=== PATIENT | female | born 1930 | race African-American/Black ===

== ENCOUNTER 2017-01-04 06:25 | Day surgery (SDC) | payer MEDICARE, MEDICAID ==
[~2017-01-04] VITALS: Ht 157.5 cm; Wt 61.0 kg
[~2017-01-04 06:25] MED LIST: ALLO100T PO; ASPI-1159 PO; CHOL200035 PO; DILT180C69 PO; DOCU-138 PO; ERGO2000 PO; FERR-63 PO; GLIM4TAB2 PO; HYDR100T26 PO; INSU100I22 SQ; LEVO125T PO; LOTE5DRO5 LEFTEYE; METO50TA5 PO; MINO2.5T19 PO; P20 PO; ROSU5TAB PO; TRESIVA SUBCUT
[2017-01-04] MEDS ORDERED: ASPI-1159 PO (07:37)
[2017-01-04] MEDS ORDERED: NOVOLOG FLEX (07:37)
[2017-01-04] MEDS ORDERED: TOPXL5 PO (07:37)
[2017-01-04 07:44] LABS: HEMATOCRIT 31.2 % (36.0-48.0); HEMOGLOBIN 10.1 g/dL (12.0-16.0); MEAN CORPUSCULAR HEMOGLOBIN 28.3 pg (28.0-32.0); MEAN CORPUSCULAR VOLUME 87.5 fL (81.0-99.0); PLATELET 154 x1000/uL (130-400); RED BLOOD CELL COUNT 3.57 mill/uL (4.2-5.4); RED CELL DISTRIBUTION WIDTH 14.4 % (11.6-14.6)
[2017-01-04 07:55] LABS: INR 1.2; PARTIAL THROMBOPLASTIN TIME 27.4 sec (24.0-34.0)
[2017-01-04] MEDS ORDERED: LIDOCAINE HCL 1% 20ML VIAL (Pyxis) INJ ONE (07:58)
[2017-01-04] MEDS ORDERED: IOVERSOL 240MG/ML 100ML BOTTLE IV ONE (07:58)
[2017-01-04] MEDS ORDERED: IOHEXOL-300 100 ML BOTTLE ONE (07:58)
[2017-01-04] MEDS ORDERED: MIDAZOLAM HCL 2 MG/2 ML VIAL ONE ×2 (08:31→08:57)
[2017-01-04] MEDS ORDERED: FENTANYL CITRATE/PF 50MCG/ML 2ML VIAL ONE (08:32)
[2017-01-04] MEDS ORDERED: HEPARIN SODIUM 1,000 UNIT/1ML VIAL IV ONE (11:27)
[2017-01-04] MEDS ORDERED: NICARDIPINE 100MCG/ML 10ML VIAL (CATH LAB) IV ONE (12:47)
[2017-01-04] MEDS ORDERED: NITROGLYCERIN 50MCG/ML 10ML VIAL (CATH LAB) IV ONE (12:47)
== END 2017-01-04 13:05 | disposition home or self-care (01) ==
LOC: CCL 06:25
PROVIDERS: ATTEND Specialist
DX: I25.118 Atherosclerotic heart disease of native coronary artery with other forms of angina pectoris (principal); I13.11 Hypertensive heart and chronic kidney disease without heart failure, with stage 5 chronic kidney disease, or end stage renal disease; N18.6 End stage renal disease; Z99.2 Dependence on renal dialysis; E78.5 Hyperlipidemia, unspecified; E03.9 Hypothyroidism, unspecified; E11.22 Type 2 diabetes mellitus with diabetic chronic kidney disease; D63.8 Anemia in other chronic diseases classified elsewhere; I73.9 Peripheral vascular disease, unspecified; I48.91 Unspecified atrial fibrillation; Z95.5 Presence of coronary angioplasty implant and graft; Z98.890 Other specified postprocedural states; Z88.8 Allergy status to other drugs, medicaments and biological substances; I25.2 Old myocardial infarction
CPT/HCPCS: 36415; 80048; 85027; 85610; 85730; 93458; 99152; 99153; C1769; C1887; C1893; J1644; J2250; J3010; J3490; Q9967

== ENCOUNTER → 2017-04-19 | Day surgery (SDC) | payer MEDICARE, MEDICAID ==
[~2017-04-19] MED LIST changes: +CHOL200010 PO; -CHOL200035 PO; +LIDOCAINE HCL 1% 20ML VIAL (Pyxis) INJ ONE; -LOTE5DRO5 LEFTEYE; +LTMX5 LEFTEYE; +NOVOLOG FLEX; +SODIUM BICARBONATE 4% (2.4MEQ) 5ML VIAL IV ONE; +TOPXL5 PO
== END | disposition home or self-care (01) ==
LOC: RAD 08:44
PROVIDERS: ATTEND Internal Medicine Nephrology
DX: N18.6 End stage renal disease (principal); Z99.2 Dependence on renal dialysis
CPT/HCPCS: 36589; J3490

== ENCOUNTER 2017-10-28 12:38 | Inpatient (IN) | payer MEDICARE, MEDICAID ==
[~2017-10-28] VITALS: Ht 160 cm; Wt 60.4 kg
[~2017-10-28 12:38] MED LIST changes: +CEFU500T41 PO; -LIDOCAINE HCL 1% 20ML VIAL (Pyxis) INJ ONE; +METO-539 PO; -METO50TA5 PO; -SODIUM BICARBONATE 4% (2.4MEQ) 5ML VIAL IV ONE
[2017-10-28] MEDS ORDERED: ASPIRIN 81MG TABLET PO STA (13:05)
[2017-10-28 13:27] LABS: HEMATOCRIT. 34.6 % (36.0-48.0); HEMOGLOBIN. 11.6 g/dL (12.0-16.0); MEAN CORPUSCULAR HEMOGLOBIN 29.1 pg (28.0-32.0); MEAN CORPUSCULAR VOLUME 86.8 fL (81.0-99.0); MEAN PLATELET VOLUME 9.7 fl (7.4-10.4); PLATELET 220 x1000/uL (130-400); RED BLOOD CELL COUNT 3.98 mill/uL (4.2-5.4); RED CELL DISTRIBUTION WIDTH 16.3 % (11.6-14.6)
[2017-10-28 13:33] LABS: CHLORIDE 95 mEq/L (98-107)
[2017-10-28 13:36] LABS: INR 1.1; PARTIAL THROMBOPLASTIN TIME 30.1 sec (23.4-31.0)
[2017-10-28 13:39] LABS: PLATELET ESTIMATE NORMAL
[2017-10-28] MEDS ORDERED: ONDANSETRON HCL 4MG/2ML VIAL IV PRN (16:00)
[2017-10-28] MEDS ORDERED: DIPHENHYDRAMINE 50MG/ML VIAL IV PRN (16:00)
[2017-10-28] MEDS ORDERED: CLONIDINE 0.1MG TABLET PO PRN (16:00)
[2017-10-28] MEDS ORDERED: DOCUSATE SODIUM 100MG CAPSULE PO PRN (16:00)
[2017-10-28] MEDS ORDERED: DEXTROSE 50% WATER 50ML SYRINGE IV PRN (23:15)
[2017-10-29] VITALS (7 sets, daily range): BP systolic 106–170; BP diastolic 61–70
[2017-10-29 06:23] LABS: BASOPHILS % 0.5 % (0.0-2.0); EOSINOPHILS % 1.1 % (0.0-5.0); HEMATOCRIT. 31.8 % (36.0-48.0); HEMOGLOBIN. 10.2 g/dL (12.0-16.0); LYMPHOCYTES % 15.1 % (20.0-50.0); MEAN CORPUSCULAR HEMOGLOBIN 28.3 pg (28.0-32.0); MEAN CORPUSCULAR VOLUME 88.1 fL (81.0-99.0); MEAN PLATELET VOLUME 10.2 fl (7.4-10.4); MONOCYTES % 12.4 % (2.0-8.0); NEUTROPHILS % 70.9 % (40.0-76.0); PLATELET 198 x1000/uL (130-400); RED BLOOD CELL COUNT 3.61 mill/uL (4.2-5.4); RED CELL DISTRIBUTION WIDTH 16.8 % (11.6-14.6)
[2017-10-29] MEDS: BLOOD SUGAR DIAGNOSTIC STRIP TEST SCH ×4 (06:43→21:51)
[2017-10-29] MEDS: ACETAMINOPHEN 325MG TABLET PO PRN ×2 (07:55→21:57)
[2017-10-29] MEDS: INSULIN LISPRO 100 UNITS/ML SUBCUT SCH ×4 (08:10→21:57)
[2017-10-29] MEDS ORDERED: MINOXIDIL 2.5MG TABLET PO SCH (09:30)
[2017-10-29] MEDS: FERROUS SULFATE 325MG TABLET PO SCH ×2 (09:30→20:28)
[2017-10-29] MEDS ORDERED: FLUCONAZOLE 200MG TABLET PO NR (09:30)
[2017-10-29] MEDS: GLIMEPIRIDE 4MG TABLET PO SCH ×3 (09:30→21:57)
[2017-10-29] MEDS: ENOXAPARIN 30MG/0.3ML SYR SUBCUT SCH (10:06)
[2017-10-29] MEDS: DILTIAZEM HCL 180MG CAPSULE CD 24HR PO SCH ×2 (10:17→21:51)
[2017-10-29] MEDS: PREDNISONE 20MG TABLET PO SCH (13:10)
[2017-10-29] MEDS: GABAPENTIN 100MG CAPSULE PO SCH ×2 (14:00→21:51)
[2017-10-29] MEDS: HYDRALAZINE HCL 100MG TABLET PO SCH ×2 (14:09→21:49)
[2017-10-29] MEDS: DOCUSATE SODIUM 100MG CAPSULE PO SCH (17:00)
[2017-10-29] MEDS: ASPIRIN 81MG EC TABLET PO SCH (18:12)
[2017-10-29] MEDS: ALLOPURINOL 100 MG TABLET PO SCH (21:49)
[2017-10-29] MEDS: CEFUROXIME AXETIL 250MG TABLET PO SCH (21:50)
[2017-10-29] MEDS: ATORVASTATIN CALCIUM 10MG TABLET PO SCH (21:51)
[2017-10-30] VITALS: BP 156/63
[2017-10-30 04:00] VITALS: BP 129/51
[2017-10-30] MEDS: HYDRALAZINE HCL 100MG TABLET PO SCH ×3 (06:19→22:06)
[2017-10-30] MEDS: GABAPENTIN 100MG CAPSULE PO SCH ×3 (06:20→22:06)
[2017-10-30] MEDS: BLOOD SUGAR DIAGNOSTIC STRIP TEST SCH ×4 (06:20→21:00)
[2017-10-30 06:50] LABS: BASOPHILS % 0.4 % (0.0-2.0); EOSINOPHILS % 1.1 % (0.0-5.0); HEMATOCRIT. 32.8 % (36.0-48.0); HEMOGLOBIN. 10.5 g/dL (12.0-16.0); LYMPHOCYTES % 16.1 % (20.0-50.0); MEAN CORPUSCULAR VOLUME 87.7 fL (81.0-99.0); MEAN PLATELET VOLUME 10.1 fl (7.4-10.4); MONOCYTES % 11.1 % (2.0-8.0); NEUTROPHILS % 71.3 % (40.0-76.0); PLATELET 210 x1000/uL (130-400); RED BLOOD CELL COUNT 3.75 mill/uL (4.2-5.4); RED CELL DISTRIBUTION WIDTH 16.7 % (11.6-14.6)
[2017-10-30 08:00] VITALS: BP 136/55
[2017-10-30] MEDS: INSULIN LISPRO 100 UNITS/ML SUBCUT SCH ×4 (08:10→22:14)
[2017-10-30] MEDS: FERROUS SULFATE 325MG TABLET PO SCH ×2 (08:13→08:43)
[2017-10-30] MEDS: ENOXAPARIN 30MG/0.3ML SYR SUBCUT SCH (08:43)
[2017-10-30] MEDS: LEVOTHYROXINE SODIUM 137MCG TABLET PO SCH (08:43)
[2017-10-30] MEDS: DILTIAZEM HCL 180MG CAPSULE CD 24HR PO SCH ×2 (08:44→22:05)
[2017-10-30] MEDS: GLIMEPIRIDE 4MG TABLET PO SCH ×2 (08:45→22:17)
[2017-10-30 12:00] VITALS: BP 143/60
[2017-10-30] MEDS: PREDNISONE 20MG TABLET PO SCH (13:21)
[2017-10-30] MEDS ORDERED: MORPHINE SULFATE 4 MG/ML CPJ (NOT FOR IM USE) IV NR (13:45)
[2017-10-30] MEDS ORDERED: HYDROCODONE/ACETAMINOPHEN 5/325MG TABLET PO PRN (13:45)
[2017-10-30] MEDS ORDERED: MORPHINE SULFATE 4 MG/ML CPJ (NOT FOR IM USE) IV PRN (13:45)
[2017-10-30] MEDS: NITROGLYCERIN OINT 1GM/INCH UDPKT TD SCH ×2 (14:18→22:07)
[2017-10-30 16:00] VITALS: BP 123/51
[2017-10-30 17:48] LABS: CREATINE KINASE 26 IU/L (26-192)
[2017-10-30] MEDS: DOCUSATE SODIUM 100MG CAPSULE PO SCH (18:06)
[2017-10-30] MEDS: ASPIRIN 81MG EC TABLET PO SCH (18:06)
[2017-10-30 20:00] VITALS: BP 118/51
[2017-10-30] MEDS: ATORVASTATIN CALCIUM 10MG TABLET PO SCH (22:04)
[2017-10-30] MEDS: CEFUROXIME AXETIL 250MG TABLET PO SCH (22:05)
[2017-10-30] MEDS: ALLOPURINOL 100 MG TABLET PO SCH (22:06)
[2017-10-31] VITALS: BP 116/54
[2017-10-31 04:00] VITALS: BP 117/58
[2017-10-31] MEDS: GABAPENTIN 100MG CAPSULE PO SCH ×3 (05:45→21:42)
[2017-10-31] MEDS: NITROGLYCERIN OINT 1GM/INCH UDPKT TD SCH ×3 (05:52→21:43)
[2017-10-31] MEDS: BLOOD SUGAR DIAGNOSTIC STRIP TEST SCH ×4 (05:52→21:43)
[2017-10-31] MEDS: HYDRALAZINE HCL 100MG TABLET PO SCH ×3 (05:52→21:42)
[2017-10-31 06:00] LABS: BASOPHILS % 0.1 % (0.0-2.0); HEMATOCRIT. 30.8 % (36.0-48.0); HEMOGLOBIN. 10.2 g/dL (12.0-16.0); LYMPHOCYTES % 7.3 % (20.0-50.0); MEAN CORPUSCULAR HEMOGLOBIN 28.9 pg (28.0-32.0); MEAN CORPUSCULAR VOLUME 87.1 fL (81.0-99.0); MONOCYTES % 6.3 % (2.0-8.0); NEUTROPHILS % 86.3 % (40.0-76.0); PLATELET 212 x1000/uL (130-400); RED BLOOD CELL COUNT 3.53 mill/uL (4.2-5.4); RED CELL DISTRIBUTION WIDTH 16.6 % (11.6-14.6)
[2017-10-31 08:00] VITALS: BP 115/47
[2017-10-31] MEDS: INSULIN LISPRO 100 UNITS/ML SUBCUT SCH ×4 (09:17→21:53)
[2017-10-31] MEDS: DILTIAZEM HCL 180MG CAPSULE CD 24HR PO SCH ×2 (09:19→21:49)
[2017-10-31] MEDS: GLIMEPIRIDE 4MG TABLET PO SCH ×2 (09:19→21:42)
[2017-10-31] MEDS: ENOXAPARIN 30MG/0.3ML SYR SUBCUT SCH (09:19)
[2017-10-31] MEDS: LEVOTHYROXINE SODIUM 137MCG TABLET PO SCH (09:19)
[2017-10-31 12:00] VITALS: BP 117/53
[2017-10-31] MEDS: PREDNISONE 20MG TABLET PO SCH (13:24)
[2017-10-31 16:00] VITALS: BP 113/41
[2017-10-31] MEDS: ASPIRIN 81MG EC TABLET PO SCH (17:34)
[2017-10-31] MEDS: DOCUSATE SODIUM 100MG CAPSULE PO SCH (17:34)
[2017-10-31 20:00] VITALS: BP 109/46
[2017-10-31] MEDS: ATORVASTATIN CALCIUM 10MG TABLET PO SCH (21:42)
[2017-10-31] MEDS: ALLOPURINOL 100 MG TABLET PO SCH (21:43)
[2017-10-31] MEDS: CEFUROXIME AXETIL 250MG TABLET PO SCH (21:49)
[2017-11-01] VITALS: BP 101/50
[2017-11-01 04:00] VITALS: BP 119/55
[2017-11-01] MEDS: NITROGLYCERIN OINT 1GM/INCH UDPKT TD SCH ×2 (05:38→13:22)
[2017-11-01] MEDS: HYDRALAZINE HCL 100MG TABLET PO SCH ×2 (05:38→13:22)
[2017-11-01] MEDS: GABAPENTIN 100MG CAPSULE PO SCH ×2 (05:38→13:21)
[2017-11-01] MEDS: BLOOD SUGAR DIAGNOSTIC STRIP TEST SCH ×3 (05:38→17:36)
[2017-11-01 07:31] LABS: BASOPHILS % 0.2 % (0.0-2.0); EOSINOPHILS % 0.1 % (0.0-5.0); HEMOGLOBIN. 10.6 g/dL (12.0-16.0); LYMPHOCYTES % 9.5 % (20.0-50.0); MEAN CORPUSCULAR HEMOGLOBIN 28.1 pg (28.0-32.0); MEAN CORPUSCULAR VOLUME 87.3 fL (81.0-99.0); MEAN PLATELET VOLUME 10.7 fl (7.4-10.4); MONOCYTES % 9.2 % (2.0-8.0); PLATELET 250 x1000/uL (130-400); RED BLOOD CELL COUNT 3.78 mill/uL (4.2-5.4); RED CELL DISTRIBUTION WIDTH 16.8 % (11.6-14.6)
[2017-11-01 08:00] VITALS: BP 129/48
[2017-11-01] MEDS: GLIMEPIRIDE 4MG TABLET PO SCH (09:31)
[2017-11-01] MEDS: DILTIAZEM HCL 180MG CAPSULE CD 24HR PO SCH (09:31)
[2017-11-01] MEDS: ENOXAPARIN 30MG/0.3ML SYR SUBCUT SCH (09:32)
[2017-11-01] MEDS: LEVOTHYROXINE SODIUM 137MCG TABLET PO SCH (09:32)
[2017-11-01] MEDS: INSULIN LISPRO 100 UNITS/ML SUBCUT SCH ×3 (09:38→17:41)
[2017-11-01 12:00] VITALS: BP 126/58
[2017-11-01] MEDS: PREDNISONE 20MG TABLET PO SCH (13:21)
[2017-11-01 16:00] VITALS: BP 120/50
[2017-11-01] MEDS ORDERED: DILTIAZEM HCL 90MG TABLET PO SCH (16:00)
[2017-11-01] MEDS: DOCUSATE SODIUM 100MG CAPSULE PO SCH (17:41)
[2017-11-01] MEDS: ASPIRIN 81MG EC TABLET PO SCH (17:41)
[2017-11-01 17:58] VITALS: BP 125/53
[2017-11-01 19:06] LABS: ANTI-DNA DOUBLE STRANDED QUANT 50 IU/mL (0-9); ANTI-NUCLEAR ANTIBODIES DIRECT Positive (Negative)
[2017-11-01] MEDS ORDERED: HYDRALAZINE HCL 100MG TABLET PO SCH (22:00)
[2017-11-02] MEDS ORDERED: ISOSORBIDE MONONITRATE 30MG TABLET SR 24HR PO SCH (09:00)
[2017-11-02 10:09] LABS: COMPLEMENT C3 131 mg/dL (82-167)
[2017-11-02 13:08] LABS: ANTI-MYELOPEROXIDASE AB < 9.0 U/mL (0.0-9.0); ANTI-PROTEINASE 3 ABS 3.6 U/mL (0.0-3.5)
[2017-11-03 14:19] LABS: ATYPICAL P-ANCA <1:20 titer (Neg:<1:20); CYTOPLASMIC C-ANCA <1:20 titer (Neg:<1:20); PERINUCLEAR P-ANCA <1:20 titer (Neg:<1:20)
== END 2017-11-01 19:58 | DRG 308 ==
LOC: ER 12:48 → 7WST 15:50 → EDBEDREQ 15:54 → ENRESERV 19:45
PROVIDERS: ADMIT Internal Medicine Nephrology; ATTEND Internal Medicine Nephrology
PROC: 5A1D70Z Performance of Urinary Filtration, Intermittent, Less than 6 Hours Per Day (ICD-10-PCS; principal; 2017-10-31)
DX: I47.1 Supraventricular tachycardia (principal); N18.6 End stage renal disease; G82.50 Quadriplegia, unspecified; I13.2 Hypertensive heart and chronic kidney disease with heart failure and with stage 5 chronic kidney disease, or end stage renal disease; E46 Unspecified protein-calorie malnutrition; K59.2 Neurogenic bowel, not elsewhere classified; E11.22 Type 2 diabetes mellitus with diabetic chronic kidney disease; I12.0 Hypertensive chronic kidney disease with stage 5 chronic kidney disease or end stage renal disease; E11.42 Type 2 diabetes mellitus with diabetic polyneuropathy; E83.51 Hypocalcemia; M48.02 Spinal stenosis, cervical region; I48.91 Unspecified atrial fibrillation; D64.9 Anemia, unspecified; E03.9 Hypothyroidism, unspecified; E78.00 Pure hypercholesterolemia, unspecified; E78.5 Hyperlipidemia, unspecified; I25.10 Atherosclerotic heart disease of native coronary artery without angina pectoris; I25.5 Ischemic cardiomyopathy; M94.0 Chondrocostal junction syndrome [Tietze]; E05.90 Thyrotoxicosis, unspecified without thyrotoxic crisis or storm; M48.061 Spinal stenosis, lumbar region without neurogenic claudication; N31.9 Neuromuscular dysfunction of bladder, unspecified; R33.9 Retention of urine, unspecified; Z87.440 Personal history of urinary (tract) infections; Z66 Do not resuscitate; Z99.2 Dependence on renal dialysis; Z95.1 Presence of aortocoronary bypass graft; Z88.8 Allergy status to other drugs, medicaments and biological substances; Z79.899 Other long term (current) drug therapy; Z82.49 Family history of ischemic heart disease and other diseases of the circulatory system; I50.9 Heart failure, unspecified; Z95.5 Presence of coronary angioplasty implant and graft
CPT/HCPCS: 36415; 70551; 71045; 72141; 72148; 80048; 80051; 80053; 82550; 82962; 83516; 83520; 83880; 84100; 84443; 84484; 85025; 85610; 85651; 85730; 86038; 86140; 86160; 86225; 86235; 86256; 86430; 87040; 93005; 93880; 97116; 97162; 97166; J1650; J1815; J2270; J7030; J7512

== ENCOUNTER 2017-11-02 21:18 | Inpatient (IN) | payer MEDICARE, MEDICAID ==
[~2017-11-02] VITALS: Ht 160 cm; Wt 56.7 kg
[2017-11-02 20:00] VITALS: BP 118/61
[2017-11-02 21:00] VITALS: BP 115/57
[~2017-11-02 21:18] MED LIST changes: -ERGO2000 PO; -METO-539 PO
[2017-11-02] MEDS ORDERED: ALLOPURINOL 100 MG TABLET PO SCH (21:39)
[2017-11-02] MEDS ORDERED: ASPIRIN 81MG EC TABLET PO SCH (21:45)
[2017-11-02] MEDS ORDERED: FERROUS SULFATE 325MG TABLET PO SCH (21:45)
[2017-11-02] MEDS ORDERED: DILTIAZEM HCL 180MG CAPSULE CD 24HR PO SCH (21:45)
[2017-11-02] MEDS ORDERED: GLIMEPIRIDE 4MG TABLET PO SCH (21:45)
[2017-11-02] MEDS ORDERED: DOCUSATE SODIUM 100MG CAPSULE PO SCH (21:45)
[2017-11-02] MEDS ORDERED: PREDNISONE 20MG TABLET PO SCH (21:45)
[2017-11-02 22:00] VITALS: BP 94/78
[2017-11-02] MEDS ORDERED: AMIODARONE HCL 150 MG in DEXT 5% WATER 100 ML IV NR (22:00)
[2017-11-02] MEDS ORDERED: HYDRALAZINE HCL 100MG TABLET PO SCH (22:00)
[2017-11-02] MEDS ORDERED: AMIODARONE HCL 900 MG in DEXT 5% WATER 482 ML IV SCH (22:00)
[2017-11-02] MEDS ORDERED: CEFUROXIME AXETIL 500MG TABLET PO SCH (23:00)
[2017-11-02] MEDS ORDERED: ACETAMINOPHEN 325MG TABLET PO PRN (23:15)
[2017-11-02] MEDS ORDERED: ONDANSETRON HCL 4MG/2ML VIAL IV PRN (23:30)
[2017-11-03] VITALS: BP 98/47
[2017-11-03 00:38] VITALS: BP 0/0
[2017-11-03 04:06] VITALS: BP 118/61
[2017-11-03] MEDS ORDERED: LEVOTHYROXINE SODIUM 137MCG TABLET PO SCH (06:50)
[2017-11-03] MEDS ORDERED: MINOXIDIL 2.5MG TABLET PO SCH (09:00)
[2017-11-03] MEDS ORDERED: ENOXAPARIN 30MG/0.3ML SYR SUBCUT SCH (09:00)
== END 2017-11-03 01:40 | disposition expired | DRG 308 ==
LOC: 3WST 21:18
PROVIDERS: ADMIT Internal Medicine Nephrology; ATTEND Internal Medicine Nephrology
PROC: 5A1D70Z Performance of Urinary Filtration, Intermittent, Less than 6 Hours Per Day (ICD-10-PCS; principal; 2017-11-02)
DX: I47.1 Supraventricular tachycardia (principal); N18.6 End stage renal disease; E46 Unspecified protein-calorie malnutrition; I12.0 Hypertensive chronic kidney disease with stage 5 chronic kidney disease or end stage renal disease; I42.9 Cardiomyopathy, unspecified; E11.22 Type 2 diabetes mellitus with diabetic chronic kidney disease; E11.40 Type 2 diabetes mellitus with diabetic neuropathy, unspecified; E11.65 Type 2 diabetes mellitus with hyperglycemia; I48.91 Unspecified atrial fibrillation; M48.02 Spinal stenosis, cervical region; D64.9 Anemia, unspecified; E03.9 Hypothyroidism, unspecified; E78.5 Hyperlipidemia, unspecified; E78.00 Pure hypercholesterolemia, unspecified; I25.10 Atherosclerotic heart disease of native coronary artery without angina pectoris; M48.061 Spinal stenosis, lumbar region without neurogenic claudication; T38.0X5A Adverse effect of glucocorticoids and synthetic analogues, initial encounter; D72.829 Elevated white blood cell count, unspecified; Y92.89 Other specified places as the place of occurrence of the external cause; Z79.899 Other long term (current) drug therapy; Z79.84 Long term (current) use of oral hypoglycemic drugs; Z86.010 Personal history of colon polyps; Z95.5 Presence of coronary angioplasty implant and graft; Z99.2 Dependence on renal dialysis; M10.9 Gout, unspecified; Z88.8 Allergy status to other drugs, medicaments and biological substances; Z68.22 Body mass index [BMI] 22.0-22.9, adult; Z66 Do not resuscitate
CPT/HCPCS: J0282; J2405; J7060